=== PATIENT | female | born 1990 | race Asian ===

== ENCOUNTER → 2023-08-20 12:19 | Outpatient (CLI) | payer OTHER, SELFPAY ==
--- NOTE | 2023-08-20 12:20 | DI.US.S_ITS ---
PROCEDURE: US OB <= 14 WEEKS FETUS INDICATIONS: DATING OUTSIDE/PRIOR DATING DATA: Last menstrual period (LMP): 05/18/2023. LMP-based estimated date of delivery (CARLI): 02/22/2024. First dating scan (date and location): Today's exam. Estimated date of delivery (CARLI) from first dating scan: 02/20/2024. The calculations are made using the clinical CARLI of 02/22/2024. TECHNIQUE: Real-time scanning was performed of the fetus and maternal pelvic organs, with image documentation. COMPARISON: None. FINDINGS: Intrauterine gestation sac present. Embryo: Measures 7.7 cm, corresponding to 13 weeks 5 days. Heart rate: 171 beats per minute. Maternal organs: Ovaries are not well visualized due to overlying bowel gas and gravid uterus. IMPRESSION: Single living intrauterine at 13 weeks 5 days, CARLI of 02/20/2024. This is concordant with clinical dating. We strive to produce accurate, complete, and clear reports of imaging services. To assist us in improving patient care, this report was composed using standard report templates and voice recognition software. Therefore, it may contain abnormal punctuation, insertions and/or omissions. Occasional wrong-word or sound-alike substitutions may occur. Though we review the report and make efforts to correct it, we do recommend that the report be read carefully in proper context to recognize any text inaccuracies. Dictated by: Petey Cornejo M.D. on 08/20/2023 at 15:18 Approved by: Petey Cornejo M.D. on 08/20/2023 at 15:19
== END ==
PROVIDERS: Referring Provider Obstetrics & Gynecology; Visit Provider Obstetrics & Gynecology
DX: Z34.01 Encounter for supervision of normal first pregnancy, first trimester (principal); Z3A.13 13 weeks gestation of pregnancy
CPT/HCPCS: 76801

== ENCOUNTER → 2023-09-14 13:56 | Outpatient (CLI) | payer OTHER, SELFPAY ==
[2023-09-14 14:41] LABS: Add Manual Diff / Slide Review NO; Basophils Absolute Auto 0 /uL (0-100); Basophils Percent Auto 0.3 % (0-2); Eosinophils Absolute Auto 100 /uL (0-450); Eosinophils Percent Auto 1.1 % (2-4); Hematocrit 33.9 % (36-46); Hemoglobin 11.4 g/dL (12.0-16.0); Lymphocytes Absolute Auto 2100 /uL (1100-4500); Mean Corpuscular HGB Conc 33.7 % (30-36); Mean Corpuscular Hemoglobin 25.9 PG (26-34); Monocytes Absolute Auto 500 /uL (0-900); Neutrophils Absolute Auto 7400 /uL (1500-7000); Neutrophils Percent Auto 72.6 % (50-75); Platelet Count 225 X10^3/uL (150-400); Red Cell Distribution Width 14.2 % (11.6-14.8); White Blood Cell Count 10.1 X10^3/uL (4.5-11.0)
[2023-09-14 22:55] LABS: Urine N gonorrhoeae NOT DETECTED
[2023-09-14 23:04] LABS: Urine Chlamydia NOT DETECTED
[2023-09-15 04:36] LABS: RPR Screen Non Reactive (Non Reactive)
[2023-09-15 08:52] LABS: Varicella IgG Antibody 1603 index (Immune >165)
[2023-09-17 14:59] LABS: AFP, Serum 40.4 ng/mL (.); Estriol, Free 1.48 ng/mL (.); Inhibin A, Dimeric 110.53 pg/mL (.); Inhibin A, MoM 0.74 (.); Maternal Ethnicity Other (.); Maternal Weight 154 lbs (.); Number of Fetuses No (.); OSBR Risk 1 IN 10000 (.); Results Report (.); Test Results *Screen Negative* (.); hCG, MoM 0.76 (.); hCG, Serum 26098 mIU/mL (.)
[2023-09-17 18:28] LABS: HIV 1 & 2 Ab/Ag 4th Gen Combo NEGATIVE (NEGATIVE); Hep C Virus Ab w/Reflex Quant NEGATIVE s/c (NEGATIVE); Hepatitis B Surface Antigen NEGATIVE s/c (NEGATIVE); Rubella Antibody IgG 37.2 IU/mL (>15)
== END ==
PROVIDERS: Referring Provider Obstetrics & Gynecology; Visit Provider Obstetrics & Gynecology
DX: Z34.02 Encounter for supervision of normal first pregnancy, second trimester (principal); Z3A.17 17 weeks gestation of pregnancy; Z34.00 Encounter for supervision of normal first pregnancy, unspecified trimester; Z34.01 Encounter for supervision of normal first pregnancy, first trimester
CPT/HCPCS: 36415; 80055; 82105; 82677; 84702; 86336; 86787; 86803; 86850; 86900; 86901; 87086; 87389; 87491; 87591

== ENCOUNTER → 2023-11-02 16:16 | Outpatient (CLI) | payer OTHER, SELFPAY ==
--- NOTE | 2023-11-02 16:18 | DI.US.S_ITS ---
PROCEDURE: US OB >= 14 WEEKS FETUS INDICATIONS: 20 Week Anatomy Scan OUTSIDE/PRIOR DATING DATA: Last menstrual period (LMP): 05/18/2023. LMP-based estimated date of delivery (CARLI): 02/22/2024 (working CARLI). First dating scan (date and location): 08/20/2023. Estimated date of delivery (CARLI) from first dating scan: 02/20/2024. TECHNIQUE: Real-time scanning was performed of the fetus, with image documentation and biometric measurements. COMPARISON: [facility], OB <= 14 WEEKS FETUS, 08/20/2023, 12:55. [facility], , OB >= 14 WEEKS FETUS, 09/14/2023, 13:31. FINDINGS: General: A single living intrauterine gestation is present. Presentation: Vertex, variable. Placenta: Placental position is anterior , without previa. Amniotic fluid index: 15 cm, normal range is 5-24 cm. Single deepest vertical pocket is 4.8 cm. heart rate: 155 beats per minute. Maternal cervical canal: 4.7 cm long. Normal lower limit is 2.5 cm. biometrics: Biparietal diameter: 5.5 centimeters, 22 weeks and 6 days Head circumference: 21 centimeters, 23 weeks Abdominal circumference: 19.7 centimeters, 24 weeks and 2 days Femur length: 4.1 centimeters, 23 weeks Clinically estimated gestational age: 24 weeks Composite gestational age from present scan: 23 weeks and 3 days Estimated weight and percentile: 29 percentile, 623 grams Anatomic survey: Neuro: Ventricles are non-dilated at less than 10 mm. Cisterna magna is normal at 3-11 mm. Cerebellum is normal in size and morphology. Nuchal skin fold: Normal at less than 6 mm between 14-21 weeks gestational age. Face: Nose and lips, facial profile are normal. Spine: No evidence for spina bifida. Heart: 4-chambered heart is present, with normal ventricular outflow tracts. Diaphragm: Diaphragm is intact. Stomach: Left-sided stomach is present. Kidneys: No hydronephrosis. Normal is less than 5 mm in 2nd trimester, less than 7 mm in 3rd trimester. Cord: 3-vessel cord has orthotopic insertion. Bladder: Normal in size. Extremities: All 4 extremities identified. IMPRESSION: Living intrauterine gestation at 24 weeks, with normal growth at the 29th percentile. Routine anatomic survey without significant abnormalities. Dictated by: Ned Brunner M.D. on 11/02/2023 at 20:48 Approved by: Ned Brunner M.D. on 11/02/2023 at 20:53
== END ==
PROVIDERS: Referring Provider Obstetrics & Gynecology; Visit Provider Obstetrics & Gynecology
DX: Z34.02 Encounter for supervision of normal first pregnancy, second trimester (principal); Z3A.24 24 weeks gestation of pregnancy
CPT/HCPCS: 76811

== ENCOUNTER → 2023-12-01 09:05 | Outpatient (CLI) | payer OTHER, SELFPAY ==
[2023-12-01 11:03] LABS: Hematocrit 30.5 % (36-46); Hemoglobin 10.3 g/dL (12.0-16.0)
[2023-12-01 11:19] LABS: GTT (PREG) 1 Hour PP 50gm Dose 92 mg/dL (76-139)
== END ==
LOC: LAB 09:06
PROVIDERS: Referring Provider Specialist; Visit Provider Specialist
DX: Z34.02 Encounter for supervision of normal first pregnancy, second trimester (principal); Z3A.26 26 weeks gestation of pregnancy
CPT/HCPCS: 36415; 82950; 85014; 85018

== ENCOUNTER → 2024-02-01 16:24 | Outpatient (CLI) | payer OTHER, SELFPAY ==
[2024-02-02 15:38] LABS: Strep Grp B PCR POS for Grp B Strep
== END ==
PROVIDERS: Visit Provider Obstetrics & Gynecology
DX: Z34.03 Encounter for supervision of normal first pregnancy, third trimester (principal); Z3A.36 36 weeks gestation of pregnancy
CPT/HCPCS: 87653

== ENCOUNTER 2024-02-17 16:28 | Outpatient (CLI) | payer OTHER, SELFPAY | END 2024-02-17 17:15 | disposition home or self-care (01) | LOC: OB 02-18 07:52 | PROVIDERS: Referring Provider Obstetrics & Gynecology; Visit Provider Obstetrics & Gynecology | DX: Z03.71 Encounter for suspected problem with amniotic cavity and membrane ruled out (principal) | CPT/HCPCS: 59025; 84112; G0378; G0379 ==

== ENCOUNTER 2024-02-21 06:13 | Inpatient (IN) | payer OTHER, SELFPAY ==
--- NOTE | 2024-02-21 08:12 | P.HPOB_ITS ---
OB HPI Date/Time Date of admission: 02/21/24 Date Patient Seen: 02/21/24 Time Patient Seen: 08:12 History of Present Condition Chief complaint: Labor CARLI Calculator 2 Estimated Delivery Date Method Current WG Current Estimate 02/22/24 LMP (Certain) 39w 6d Other Estimates 02/20/24 Ultrasound #1 40w 1d 02/26/24 Ultrasound #2 39w 2d Estimated Gestational Age (weeks): 39+6 : 1 Para: 0 care: good care, initiated at week # (17), number of visits (9) and pounds weight gain (41) Dating criteria OB: LMP confirmed by 1st trimester US Ultrasounds: normal 1st trimester US and normal mid trimester US Obstetrical complications: none Medical complications OB: none Preadmission Labs Last OB Lab Results: 2 Blood Type O Positive 02/21/24 09:35 Antibody Screen Negative 02/21/24 09:35 Hematocrit 35.4 % (36-46) L 02/21/24 09:35 Hemoglobin 11.8 g/dL (12.0-16.0) L 02/21/24 09:35 Hepatitis B Surface Antigen Negative s/c (NEGATIVE) 09/14/23 14 :01 Hepatitis C Antibody Negative s/c (NEGATIVE) 09/14/23 14:01 Rubella Antibody 37.2 IU/mL (>15) 09/14/23 14:01 Varicella-Zoster IgG Antibody 1603 index (Immune >165) 09/14/23 14:01 Glucose 1 Hour 92 mg/dL (76-139) 12/01/23 10:31 Group B Streptococcus (PCR) Pos for grp b strep H 02/01/24 16:2 4 -: Chlamydia screen: negative, Gonorrhea screen: negative and Urine: negative Genetic Screens: Quad screen: Normal External Labs -: Urine: negative Evaluation Evaluation Baseline heart rate: 135 Variability: Moderate (11-25) monitor accelerations: Present Monitor Decelerations: Absent Contraction Frequency (minutes): 5 Uterine Contraction Intensity: Moderate Status: Category l Dilation (cm): 4 Effacement (%): 80 station: -1 Position of cervix: mid Consistency: medium PFSH Surgical History (Updated 08/10/23 @ 13:08 by Charley Saxena RN) No pertinent past surgical history Family History (Updated 08/10/23 @ 13:11 by Charley Saxena RN) Father Hypertension Aunt Hypertension Cancer of kidney Grandmother Hypertension Colon cancer Mother Bipolar disorder Social History marital status: number of children: 0 household members: spouse and friend(s) lives independently: Yes caregiver/support person: Yes housing: house pets and animals: Yes (1 cat, litter robot) education level: high school occupational status: employed current occupational exposures/hazards: No special ryan needs: No travel history: recent seatbelt use: always helmet use: Yes water heater temp set < 120 deg: Yes working smoke detector in home: Yes fire extinguisher in home: Yes carbon monox detector in home: Yes firearms in home: No do you feel safe at home: Yes Smoking Status: Never smoker second hand exposure: Yes (roommate smokes, vapes) alcohol intake: never during the past year weight has: remained stable well-balanced diet: daily or most days daily servings fruits/ve or more times/day caffeine: Yes (occasional cup coffee, not daily) Type(s) of exercise: regular exercise, weight lifting and running frequency: 5-6 times per week Meds Home Medications and Allergies Home Medications Medication Instructions Recorded Confirmed Type magnesium amino acid chelate 100 200 mg PO .HS 08/10/23 02/21/24 History mg tablet ondansetron 4 mg disintegrating 4 mg PO Q6H PRN nausea and 09/14/23 02/21/24 Rx tablet vomiting #20 tabs vit no.95-ferrous 1 tab PO DAILY #90 tabs 11/23/23 02/21/24 Rx fumarate 28 mg-folic acid 800 mcg tablet ( Multivitamins) Allergies Allergy/AdvReac Type Severity Reaction Status Date / Time No Known Drug Allergies Allergy Verified 02/21/24 09:41 OB Exam Narrative Exam Narrative: Generally: Patient very uncomfortable with contractions, requesting epidural Fundal height: 39 cm Estimated weight: 7 lb Extremities: Trace edema, 1+ DTRs Objective Labs 02/21/24 09:35 Assessment and Plan Assessment and Plan Assessment and Plan narrative: Assessment: 33-year-old 1 para 0 at 39-,6/7 weeks gestation entering active labor Requesting epidural GBS positive Plan: Epidural GBS prophylaxis Artificial rupture of membranes once comfortable Expected management to spontaneous vaginal delivery Time Spent with Patient Total time spent with greater than 50% in coordination of care (as documented) at patient's floor/unit and/or counseling patient:: 15-24 minutes
[2024-02-21 09:24] VITALS: BP 116/68
[2024-02-21] MEDS: LACTATED RINGERS 1,000 ML 100 ML IV ×3 (09:38→18:44)
[2024-02-21 09:46] LABS: Add Manual Diff / Slide Review NO; Basophils Absolute Auto 0 /uL (0-100); Basophils Percent Auto 0.3 % (0-2); Eosinophils Absolute Auto 0 /uL (0-450); Eosinophils Percent Auto 0.2 % (2-4); Hematocrit 35.4 % (36-46); Hemoglobin 11.8 g/dL (12.0-16.0); Lymphocytes Absolute Auto 1600 /uL (1100-4500); Lymphocytes Percent Auto 12.9 % (25-40); Mean Corpuscular HGB Conc 33.3 % (30-36); Mean Corpuscular Volume 80.9 fL (80-100); Monocytes Absolute Auto 500 /uL (0-900); Monocytes Percent Auto 4.3 % (3-14); Neutrophils Absolute Auto 10000 /uL (1500-7000); Neutrophils Percent Auto 82.3 % (50-75); Platelet Count 173 X10^3/uL (150-400); Red Blood Cell Count 4.38 X10^6/uL (4.0-5.2); White Blood Cell Count 12.2 X10^3/uL (4.5-11.0)
[2024-02-21] MEDS: FENT 2MCG/ML BUPIV 0.125% EPI 200 MCG/100 ML PLAST..BAG 6 MCG EPIDURAL ×2 (10:30→16:19)
--- NOTE | 2024-02-21 10:50 | P.PCN_ITS ---
Regional Block Pre-procedure Procedure: Continuous Lumbar Epidural for L&D (with dural puncture) Attending OB provider: Kia Mathis PMH/ROS narrative: 33yo female in early labor, requesting epidural. See pre-anesthesia evaluation for further details. ASA Class: II Labs: Hct 35.4 % (36-46) L 02/21/24 09:35 Plt Count 173 X10^3/uL (150-400) 02/21/24 09:35 Medications: Current Medications Generic Name Dose Route Start Last Admin Trade Name Freq PRN Reason Stop Dose Admin Calcium Carbonate 1,000 mg 02/21/24 08:10 Calcium Carbonate 500 Mg Tab PO Q4HR PRN Dyspepsia Carboprost Tromethamine 250 mcg 02/21/24 08:10 Carboprost 250 Mcg/Ml Ampul IM Q90M PRN Bleeding Diphenhydramine HCl 25 mg 02/21/24 10:49 Diphenhydramine 50 Mg/Ml Vial IV Q10M PRN Pruritis Ephedrine Sulfate 10 mg 02/21/24 10:49 Ephedrine 50 Mg/Ml Vial IV Q5M PRN Blood pressure decrease more than 20% of baseline. Fentanyl 50 mcg 02/21/24 08:10 Fentanyl 100 Mcg/2 Ml Inj IV Q1H PRN Pain, Moderate (4-6) Lactated Ringer's 1,000 mls @ 100 mls/hr 02/21/24 08:15 02/21/24 09:38 Lactated Ringers IV 100 mls/hr CONT RADHA Administration Oxytocin/Lactated Ringer's 30 unit in 500 mls @ 200 mls/hr 02/21/24 08:10 Oxytocin Premix IV CONT PRN Bleeding Protocol Tranexamic Acid 1,000 mg/ 100 mls @ 200 mls/hr 02/21/24 08:10 Sodium Chloride IV NOW PRN Bleeding Oxytocin/Lactated Ringer's 30 unit in 500 mls @ 2 mls/hr 02/21/24 08:15 Oxytocin Premix IV TITRATE RADHA Protocol 2 MILLIUNIT/MIN FENT 2MCG/ML BUPIV 0.125% EPI 200 mcg in 100 mls @ 6 mls/hr 02/21/24 11:00 Fentanyl/Bupiv/Ns 2mcg/Ml - 0.125% EPIDURAL CONT RADHA Lidocaine HCl 20 ml 02/21/24 08:10 Lidocaine 1% 20 Ml INJ INTRA-OP PRN Post Delivery Methylergonovine Maleate 0.2 mg 02/21/24 08:10 Methylergonovine 0.2 Mg Tablet PO Q6HR PRN Heavy Bleeding Methylergonovine Maleate 0.2 mg 02/21/24 08:10 Methylergonovine 0.2 Mg/Ml Vial IM NOW PRN Bleeding Mineral Oil 30 ml 02/21/24 08:10 Mineral Oil 30 Ml Udc TOP PRN PRN Version Misoprostol 800 mcg 02/21/24 08:10 Misoprostol 200 Mcg Tablet VA NOW PRN Bleeding Misoprostol 400 mcg 02/21/24 08:10 Misoprostol 200 Mcg Tablet SL NOW PRN Bleeding Nalbuphine HCl 2.5 mg 02/21/24 10:49 Nalbuphine 20 Mg/Ml Ampul IV Q10M PRN Pruritis Naloxone HCl 0.2 mg 02/21/24 08:10 Naloxone 0.4 Mg/Ml Vial IV Q2MIN PRN Opiate Reversal Ondansetron HCl 4 mg 02/21/24 08:10 Ondansetron 4 Mg/2 Ml Inj IV Q4HR PRN Nausea And Vomiting Oxytocin 10 unit 02/21/24 08:10 Oxytocin 10 Unit/Ml Vial IM NOW PRN Bleeding Sodium Chloride 10 ml 02/21/24 09:00 Sodium Chloride 0.9% Flush IV BID RADHA Sodium Chloride 10 ml 02/21/24 08:10 Sodium Chloride 0.9% Flush IV PRN PRN Flush Sodium Chloride 10 ml 02/21/24 11:00 Sodium Chloride 0.9% Flush IV BID RADHA Sodium Chloride 10 ml 02/21/24 10:49 Sodium Chloride 0.9% Flush IV PRN PRN Flush Allergies: Allergies Allergy/AdvReac Type Severity Reaction Status Date / Time No Known Drug Allergies Allergy Verified 02/21/24 09:41 Procedure Insertion date: 02/21/24 Insertion time: 10:30 Prep/Local: 1% lidocaine (Chloraprep) Interspace: L3-4 Patient position: sitting Needle: 18 gauge DiscountIFtead (27g Pencan for dural puncture) Loss of resistance with: saline GRICELDA at (cm): 8 Catheter placed at SKIN (cm): 14 Catheter in SPACE (cm): 6 Insertion: No CSF, No Blood, Yes Paresthesia with insertion, No Paresthesia with injection and No Test dose reaction Initial Medications TEST DOSE time: 10:31 TEST DOSE: 1.5% lidocaine with epinephrine 1:200k (mL): 3 BOLUS DOSE time: 10:32 BOLUS DOSE (mL): 2 BOLUS DOSE med: other (same as test dose) Infusion INFUSION: 0.125% bupivacaine and with fentanyl 2 mcg/mL Initial rate (mL/hr): 8 Subsequent interventions: Time out 10:20. Pump started at 10:43 after uneventful epidural placement. Pt reportedly at 1 cm; she appears much more comfortable and rates pain with contractions as half what it was before. KR 11:10 - Called because pt is feeling her contractions more. Pitocin has not been started yet. Bolused 10 ml of epidural infusion medication via catheter. Told pt to expect to feel some pressure and tightening but not sharp pain with contractions and to contact us in half an hour if she is still uncomfortable. KR 11:35-11:40 - Called because pt is rating her pain at 7-8/10 after bolus but is reporting some numbness in one LE. Bolused with 2% lidocaine 10 ml and increased pump rate to 10 ml/hr. Discussed with pt that if this does not help her, we may have to replace epidural. Pt voiced understanding. Appears very comfortable before and after bolus. KR 12:05 - Called because pt felt no change in pain after lido 2% bolus to epidural. Catheter pulled. Placing new catheter. Pt is currently about 6 cm dilated and reports continued pain of 7-8/10. Post-procedure Anesthesia date START: 02/21/24 Anesthesia time START: 10:20 Anesthesia date END: 02/21/24 Anesthesia time END: 12:05 Post-procedure Anesthesia Assessment: Yes CV function: HR/BP stable, Yes Resp function: RR/sat/airway adequate, Yes Post-op hydration adequate, Yes Pain control adequate, Yes Nausea & vomiting absent, Yes Temperature > 36 C, Yes Mental status appropriate and Yes Anesthesia complications (Ineffective epidural catheter; replacing. See new procedure note. )
[2024-02-21] MEDS: ONDANSETRON 4 MG/2 ML INJ IV ×3 (11:53→20:30)
--- NOTE | 2024-02-21 12:22 | PM.OBPNLAB ---
Date/Time Date Patient Seen: 02/21/24 Time Patient Seen: 12:22 Pain Control Pain control: epidural (not working well) Pelvic Exam Dilation (cm): 6 Effacement (%): 90 station: 0 Amniotic membrane status: Bulging Contractions Contractions on admission: regular Monitor mode: External Contraction frequency (min): 3 Contraction duration (min): 1 Status Heart Rate Baseline: 135 Monitor Accelerations: Present Monitor Decelerations: Absent Monitor Variability: Moderate Assessment and Plan Assessment: active labor Comments: Pitocin augmentation as needed AROM in 2 hours Expectant management to
--- NOTE | 2024-02-21 13:57 | P.PCN_ITS ---
Regional Block Pre-procedure Procedure: Continuous Lumbar Epidural for L&D (with CSE) Attending OB provider: Tessa Escalona PMH/ROS narrative: 33yo female in labor with failed epidural, replacing catheter. See pre- anesthesia note for further details. ASA Class: II Labs: Hct 35.4 % (36-46) L 02/21/24 09:35 Plt Count 173 X10^3/uL (150-400) 02/21/24 09:35 Medications: Current Medications Generic Name Dose Route Start Last Admin Trade Name Freq PRN Reason Stop Dose Admin Butorphanol Tartrate 0.5 mg 02/21/24 10:50 Butorphanol 1 Mg/Ml Vial IV 02/22/24 10:50 Q3HR PRN PRURITUS Calcium Carbonate 1,000 mg 02/21/24 08:10 Calcium Carbonate 500 Mg Tab PO Q4HR PRN Dyspepsia Carboprost Tromethamine 250 mcg 02/21/24 08:10 Carboprost 250 Mcg/Ml Ampul IM Q90M PRN Bleeding Diphenhydramine HCl 25 mg 02/21/24 10:49 Diphenhydramine 50 Mg/Ml Vial IV Q10M PRN Pruritis Diphenhydramine HCl 25 mg 02/21/24 10:50 Diphenhydramine 50 Mg/Ml Vial IV 02/22/24 10:50 Q3HR PRN PRURITUS Ephedrine Sulfate 10 mg 02/21/24 10:49 Ephedrine 50 Mg/Ml Vial IV Q5M PRN Blood pressure decrease more than 20% of baseline. Fentanyl 50 mcg 02/21/24 08:10 Fentanyl 100 Mcg/2 Ml Inj IV Q1H PRN Pain, Moderate (4-6) Lactated Ringer's 1,000 mls @ 100 mls/hr 02/21/24 08:15 02/21/24 11:54 Lactated Ringers IV 100 mls/hr CONT RADHA Administration Oxytocin/Lactated Ringer's 30 unit in 500 mls @ 200 mls/hr 02/21/24 08:10 Oxytocin Premix IV CONT PRN Bleeding Protocol Tranexamic Acid 1,000 mg/ 100 mls @ 200 mls/hr 02/21/24 08:10 Sodium Chloride IV NOW PRN Bleeding Oxytocin/Lactated Ringer's 30 unit in 500 mls @ 2 mls/hr 02/21/24 08:15 Oxytocin Premix IV TITRATE RADHA Protocol 2 MILLIUNIT/MIN FENT 2MCG/ML BUPIV 0.125% EPI 200 mcg in 100 mls @ 6 mls/hr 02/21/24 11:00 Fentanyl/Bupiv/Ns 2mcg/Ml - 0.125% EPIDURAL CONT RADHA Lidocaine HCl 20 ml 02/21/24 08:10 Lidocaine 1% 20 Ml INJ INTRA-OP PRN Post Delivery Methylergonovine Maleate 0.2 mg 02/21/24 08:10 Methylergonovine 0.2 Mg Tablet PO Q6HR PRN Heavy Bleeding Methylergonovine Maleate 0.2 mg 02/21/24 08:10 Methylergonovine 0.2 Mg/Ml Vial IM NOW PRN Bleeding Metoclopramide HCl 10 mg 02/21/24 10:50 Metoclopramide 10 Mg/2 Ml Inj IV 02/22/24 10:50 Q4H PRN Nausea Mineral Oil 30 ml 02/21/24 08:10 Mineral Oil 30 Ml Udc TOP PRN PRN Version Misoprostol 800 mcg 02/21/24 08:10 Misoprostol 200 Mcg Tablet NJ NOW PRN Bleeding Misoprostol 400 mcg 02/21/24 08:10 Misoprostol 200 Mcg Tablet SL NOW PRN Bleeding Nalbuphine HCl 2.5 mg 02/21/24 10:49 Nalbuphine 20 Mg/Ml Ampul IV Q10M PRN Pruritis Nalbuphine HCl 5 mg 02/21/24 10:50 Nalbuphine 20 Mg/Ml Ampul IV Q6H PRN PRURITIS Naloxone HCl 0.2 mg 02/21/24 08:10 Naloxone 0.4 Mg/Ml Vial IV Q2MIN PRN Opiate Reversal Ondansetron HCl 4 mg 02/21/24 08:10 02/21/24 11:53 Ondansetron 4 Mg/2 Ml Inj IV 4 mg Q4HR PRN Administration Nausea And Vomiting Ondansetron HCl 4 mg 02/21/24 10:50 Ondansetron 4 Mg/2 Ml Inj IV 02/22/24 10:50 Q6HR PRN Nausea Oxytocin 10 unit 02/21/24 08:10 Oxytocin 10 Unit/Ml Vial IM NOW PRN Bleeding Sodium Chloride 10 ml 02/21/24 09:00 Sodium Chloride 0.9% Flush IV BID RADHA Sodium Chloride 10 ml 02/21/24 08:10 Sodium Chloride 0.9% Flush IV PRN PRN Flush Sodium Chloride 10 ml 02/21/24 11:00 Sodium Chloride 0.9% Flush IV BID RADHA Sodium Chloride 10 ml 02/21/24 10:49 Sodium Chloride 0.9% Flush IV PRN PRN Flush Allergies: Allergies Allergy/AdvReac Type Severity Reaction Status Date / Time No Known Drug Allergies Allergy Verified 02/21/24 09:41 Procedure Insertion date: 02/21/24 Insertion time: 13:59 Prep/Local: 1% lidocaine (Chloraprep) Interspace: L3-4, higher than prior catheter placement Patient position: sitting Needle: 18 gauge Hustead (22g Pencan 5 for CSE) Loss of resistance with: saline GRICELDA at (cm): 7 Catheter placed at SKIN (cm): 14 Catheter in SPACE (cm): 7 Insertion: No CSF, No Blood, No Paresthesia with insertion, No Paresthesia with injection and Yes Test dose reaction Initial Medications TEST DOSE time: 12:19 TEST DOSE: 1.5% lidocaine with epinephrine 1:200k (mL): 3 BOLUS DOSE time: 12:25 BOLUS DOSE (mL): 2 BOLUS DOSE med: other (Same as test dose via epidural. Gave CSE dose of 0.125% bupiv in dextrose 0.5 ml at 12:18. ) Infusion INFUSION: 0.125% bupivacaine and with fentanyl 2 mcg/mL Initial rate (mL/hr): 10 Subsequent interventions: Pt initially reported equivocal sensations of possible metallic taste in mouth after test dose. Waited extra time before giving epidural bolus dose, and pt reported no sx c/w intrathecal or intravascular catheter, able to move BLE. Pump started at 12:26. Pt reports she is currently not feeling her contractions at all. Post-procedure Anesthesia date START: 02/21/24 Anesthesia time START: 12:07 Anesthesia date END: 02/21/24 Anesthesia time END: 21:26 Post-procedure Anesthesia Assessment: Yes CV function: HR/BP stable, Yes Resp function: RR/sat/airway adequate, Yes Post-op hydration adequate, Yes Pain control adequate, Yes Nausea & vomiting absent, Yes Temperature > 36 C, Yes Mental status appropriate and No Anesthesia complications
[2024-02-21] MEDS: AMPICILLIN 2,000 MG in SODIUM CHLORIDE 0.9% 100 ML 200 MG IV (15:34)
[2024-02-21] MEDS: OXYTOCIN PREMIX 30 UNIT/500 ML PLAST..BAG IV (18:29)
[2024-02-21] MEDS: AMPICILLIN 1,000 MG in SODIUM CHLORIDE 0.9% 100 ML 200 MG IV (18:56)
--- NOTE | 2024-02-21 19:42 | PM.OBPNLAB ---
Date/Time Date Patient Seen: 02/21/24 Time Patient Seen: 17:37 Pain Control Pain control: epidural Pelvic Exam Dilation (cm): 9 Effacement (%): 90 station: 0 Amniotic membrane status: Bulging Contractions Monitor mode: External Contraction frequency (min): 3 Contraction duration (min): 1 Contraction pattern: Regular Contraction intensity: Strong/Firm Status status: Category l Heart Rate Baseline: 135 Monitor Accelerations: Present Monitor Decelerations: Absent Monitor Variability: Moderate Assessment and Plan Assessment: active labor Comments: AROM with clear/old blood Expectant management to Pitocin augmentation as needed
--- NOTE | 2024-02-21 19:44 | PM.OBPNLAB ---
Date/Time Date Patient Seen: 02/21/24 Time Patient Seen: 19:44 Pain Control Pain control: epidural Pelvic Exam Dilation (cm): 10 Effacement (%): 100 station: +1 Amniotic membrane status: Ruptured Contractions Contractions on admission: regular Monitor mode: External Pitocin rate (mU/min): 2 Contraction frequency (min): 4 Contraction duration (min): 1 Contraction pattern: Regular Contraction intensity: Strong/Firm Status status: Category l Heart Rate Baseline: 130 Monitor Accelerations: Present Monitor Decelerations: Absent Monitor Variability: Moderate Assessment and Plan Assessment: active labor Comments: Begin pushing Expectant management to
--- NOTE | 2024-02-21 22:24 | PM.OBPRVD ---
Events: Labor Augmentation Labor & Delivery Delivery date: 02/21/24 Cervical ripening method: none Induction method: none Delivery augmentation: rupture of membranes and pitocin Delivery monitor: external FHT and external uterine Route of delivery: forceps (Laufe, outlet) Indication for instrumentation: maternal exhaustion (Maternal request) Episiotomy description: None L&D Laceration Description: Perineal - 4th Degree and Vaginal - 2nd Degree Delivery repair: vicryl and chromic Quantitative Blood Loss: 487 Anesthesia Type: Epidural and Local Complications: None Narrative: Patient complete and pushed for 2 hours and 6 minutes. Due to maternal exhaustion and maternal request, a vacuum was applied but due to occiput posterior presentation could not get good purchase. The decision was made to proceed with outlet forceps. This was discussed with the patient. She was in agreement. The Laufe forceps were applied without difficulty. With 1 pull the vertex was brought to the perineum. The forceps were removed, but patient pushed while the forceps were being removed. The vertex delivered in the direct occiput posterior presentation, over an intact perineum, at 9:26 p.m.. A loose nuchal cord x1 was reduced on the perineum. The remainder of the body was delivered without difficulty and placed on mom's abdomen. Pitocin was given in the IV fluids. The cord was double clamped and cut after it stopped pulsing. Cord bloods were obtained. Placenta delivered intact with a three-vessel cord at 9:47 p.m.. A small fourth degree laceration was noted. This was repaired in 2 layers with chromic suture. The vaginal mucosa was closed with 2-0 Vicryl in a running interlocking fashion. The sphincter was grasped with Allis clamps. 0 Vicryl was used at both the external and internal sphincter. The perineum was closed with 2-0 Vicryl in a running fashion. The skin was closed with 2-0 chromic in a subcuticular fashion. Three retention sutures were placed on the perineum with 2-0 chromic. Hemostasis was achieved. Apgars 8 at 1 minute and 9 at 5 minutes. Female. QBL 487 cc. . Epidural analgesia and local, 10 cc, for the repair. Mom and infant stable to recovery. [place] [facility] 1: gender: Female Presentation: vertex Position: Occiput Posterior Placenta delivery description: Spontaneous Cord Vessel Description: Nuchal Cord, Loose and Reduced (on the perineum) score (1 min): 8 score (5 min): 9 weight: 7 lb 2.3 oz Plan for aftercare: Routine care
[2024-02-21] MEDS: KETOROLAC 30 MG/ML VIAL IV (23:42)
[2024-02-22] MEDS: KETOROLAC 30 MG/ML VIAL IV ×3 (05:35→17:39)
[2024-02-22] MEDS: ACETAMINOPHEN 325 MG TABLET 650 MG PO ×4 (05:36→23:57)
[2024-02-22 07:13] LABS: Hematocrit 30.3 % (36-46)
[2024-02-22] MEDS: DOCUSATE 100 MG CAPSULE PO ×2 (09:27→23:58)
[2024-02-22] MEDS: PRENATAL VIT,CALC/IRON/FOLIC 1 TABLET 1 TAB PO (09:27)
[2024-02-22] MEDS: IBUPROFEN 600 MG TABLET PO (23:57)
[2024-02-23] MEDS: IBUPROFEN 600 MG TABLET PO ×2 (06:25→12:36)
[2024-02-23] MEDS: ACETAMINOPHEN 325 MG TABLET 650 MG PO ×2 (06:25→12:35)
[2024-02-23] MEDS: PRENATAL VIT,CALC/IRON/FOLIC 1 TABLET 1 TAB PO (09:03)
[2024-02-23] MEDS: DOCUSATE 100 MG CAPSULE PO (09:03)
[2024-02-23 09:39] VITALS: BP 94/56; PULSE 69; RESP 16; TEMP 37
--- NOTE | 2024-02-23 12:56 | PM.OBPN.1 ---
Subjective - OB Subjective Patient comments: pain well controlled and flatus present [place] baby status: doing well and nursing well feeding status: exclusively breast feeding Date Patient Seen: 02/22/24 Time Patient Seen: 12:30 Interval history: day # 0-1 status post outlet forceps delivery. Perineum is a little tender. going well. She has voided spontaneously without difficulty. She has normal urge to void. She is ambulating independently. Exam Vital Signs (past 8 hours): - 02/23/24 09:39 Temperature 98.6 F Pulse Rate 69 Respiratory Rate 16 Blood Pressure 94/56 L Narrative Exam Narrative: Generally: Patient is sitting up in bed, holding infant, no acute distress Fundus: Firm at U -1 Extremities: 1+ edema, negative Homans Perineum: Some edema. Intact. Objective Labs 02/22/24 06:45 Assessment & Plan Plan day: 1 plan OB: routine care Comments: Anticipate discharge February 23, 2024 Time Spent With Patient Time: Total time spent is greater than 50% in coordination of care (as documented) at patient's floor/unit and/or counseling patient: Time with patient: 15-24 minutes
--- NOTE | 2024-02-23 12:58 | PM.OBDS.1 ---
Discharge Providers Provider Date of admission: 02/21/24 06:13 Discharge Date: 02/23/24 Primary care physician: Collin MAHAN Provider Consults: 02/21/24 08:10 Consult to Anesthesiology Urgent Comment: Consulting Provider: Anesthesiologist Reason for consultation: Epidural Has provider been notified: No 02/22/24 22:21 Consult to Spanner Operator Routine Comment: Discharge provider: Tessa Escalona MD Summary Hospital Course Date Patient Seen: 02/23/24 Time Patient Seen: 11:30 Diagnoses: 39-6/7 weeks gestation Epidural analgesia Artificial rupture of membranes Direct occiput posterior presentation Outlet forceps delivery Fourth degree laceration Hospital Course: Patient is a 33-year-old 1 para 1 who presented on February 21, 2024 in early to active labor. She received an epidural for pain management and progressed to 6 cm. Artificial rupture of membranes was performed with clear amniotic fluid. She progressed to complete dilation and after 2 hours of pushing requested assistance. Outlet forceps were applied and the infant delivered in the direct occiput posterior presentation. She had 0.25 degree laceration which was repaired in the usual fashion. Her course was unremarkable and she was discharged home on day # 2. Peripartum Data Infant Delivery Method: Assisted Delivery ([place] outlet forceps) Laceration Description: Perineal - 4th Degree Episiotomy description: None Procedures: Epidural analgesia Artificial rupture of membranes Outlet forceps delivery Fourth degree laceration repair complications: none [place] 1: Gender: Female Status at Discharge Cognitive/behavioral status at discharge: oriented Functional status at discharge: independent ambulation Overall status at discharge: patient is progressing back to baseline Time Spent with Patient Time attestation: Total time spent providing and/or coordinating discharge services: Time spent: Less than 30 minutes Objective Labs 02/22/24 06:45 Exam Vital Signs (past 8 hours): - 02/23/24 09:39 Temperature 98.6 F Pulse Rate 69 Respiratory Rate 16 Blood Pressure 94/56 L Narrative Exam Narrative: Generally: Patient walking around the room, no acute distress Fundus: Firm at U -1 Extremities: 1+ edema, negative Homans Discharge Plan Discharge Plan Patient Disposition: Home Provider Discharge Comment: Call with fever, chills, or bleeding vaginally more than a pad in an hour Ibuprofen 600 mg every 6 hours as needed Tylenol 650 mg every 6 hours as needed Stool softener, (Colace, Docusate sodium) Discharge orders & Medications Prescriptions: New oxycodone 5 mg tablet 5 mg PO Q4H PRN (Reason: pain) Qty: 20 0RF Continued PNV cmb#[id number]-ferrous fumarate-FA [ Multivitamins] 28 mg iron- 800 mcg tablet 1 tab PO DAILY Qty: 90 3RF Discontinued magnesium amino acid chelate 100 mg tablet 200 mg PO .HS ondansetron 4 mg tablet,disintegrating 4 mg PO Q6H PRN (Reason: nausea and vomiting) Qty: 20 3RF Follow up/Referrals: Tessa Escalona MD [Physician] - (Two week laceration check appointment: March 05 at 2:[address] Escalona. Six week appointment: April 01 at 1:[address] Escalona.) Diet/Activity/Treatments Diet: Regular Activity: Walking only for the first 6 weeks Nothing in the vagina for 6 weeks Skin/Wound/Dressing Care Report to your healthcare provider any signs of infection, such as:: chills, fever, increased pain and unusual drainage Visit Report/Discharge Packet Instructions: DI for Labor and Delivery, Vaginal , DI for Prescription Opioid Use Stand Alone Forms: Patient Portal/API, Stroke Signs & Symptoms Discharge Data Primary Care Provider: Collin Polanco
== END 2024-02-23 13:52 | disposition home or self-care (01) | DRG 768 ==
PROVIDERS: Obstetrics & Gynecology; Admitting Provider Obstetrics & Gynecology; Referring Provider Obstetrics & Gynecology; Visit Provider Obstetrics & Gynecology
DX: O99.824 Streptococcus B carrier state complicating childbirth (principal); Z37.0 Single live birth; O32.8XX0 Maternal care for other malpresentation of fetus, not applicable or unspecified; O75.81 Maternal exhaustion complicating labor and delivery; O70.3 Fourth degree perineal laceration during delivery; O70.1 Second degree perineal laceration during delivery; Z3A.39 39 weeks gestation of pregnancy
CPT/HCPCS: 36415; 59050; 85014; 85018; 85025; 86850; 86900; 86901; G0379; J0290; J1885; J2405; J2590